=== PATIENT | female | born 1970 | race Caucasian/White ===

== ENCOUNTER 2019-06-04 01:27 | Emergency (ER) | payer OTHER ==
[~2019-06-04] VITALS: Ht 157.5 cm; Wt 87.0 kg
[~2019-06-04 01:27] MED LIST: IBUP-1636
[2019-06-04] MEDS ORDERED: KETOROLAC 30MG/ML VIAL IV STA (06:26)
[2019-06-04] MEDS ORDERED: SODIUM CHLORIDE 0.9% 1,000 ML IV ONE (06:26)
[2019-06-04] MEDS ORDERED: ONDANSETRON HCL 4MG/2ML INJ IV STA (06:26)
[2019-06-04 06:58] LABS: HEMATOCRIT. 41.7 % (36.0-48.0); HEMOGLOBIN. 14.2 g/dL (12.0-16.0); MEAN CORPUSCULAR HEMOGLOBIN 30.2 pg (28.0-32.0); MEAN CORPUSCULAR VOLUME 88.7 fL (81.0-99.0); MEAN PLATELET VOLUME 8.1 fl (7.4-10.4); PLATELET 294 x1000/uL (130-400); RED BLOOD CELL COUNT 4.71 mill/uL (4.2-5.4); RED CELL DISTRIBUTION WIDTH 14.6 % (11.6-14.6)
[2019-06-04 07:06] LABS: CHLORIDE 109 mEq/L (98-107)
[2019-06-04 07:26] LABS: PLATELET ESTIMATE NORMAL
[2019-06-04 08:24] VITALS: BP 112/67
[2019-06-04 08:43] LABS: CLARITY URINE CLEAR (CLEAR); COLOR URINE YELLOW (YELLOW); SPECIFIC GRAVITY URINE 1.031 (1.005-1.030)
[2019-06-04 08:44] LABS: KETONES URINE NEGATIVE (NEGATIVE); LEUKOCYTE ESTERASE URINE NEGATIVE (NEGATIVE); NITRITE URINE NEGATIVE (NEGATIVE); OCCULT BLOOD URINE NEGATIVE (NEGATIVE); PROTEIN URINE 1+ (NEGATIVE); UROBILINOGEN URINE 0.2 E.U./dL (0.2-1.0)
== END 2019-06-04 08:25 | disposition home or self-care (01) ==
LOC: ER 01:27
DX: R10.13 Epigastric pain (principal); R10.11 Right upper quadrant pain; K80.50 Calculus of bile duct without cholangitis or cholecystitis without obstruction; E11.9 Type 2 diabetes mellitus without complications
CPT/HCPCS: 36415; 76705; 80053; 81003; 81025; 83690; 85025; 96374; 96375; 99284; J1885; J2405; J7030